=== PATIENT | male | born 1990 | race Caucasian/White ===

== ENCOUNTER 2017-04-30 11:18 | Emergency (ER) | payer BC, OTHER ==
[~2017-04-30] VITALS: Ht 170.2 cm; Wt 89.0 kg
[2017-04-30 11:23] VITALS: Ht 170.2 cm; Wt 89.0 kg
--- NOTE | 2017-04-30 13:14 | RADRPT ---
PROCEDURE: XR Left Shoulder CLINICAL INDICATION: Fall, can cannot raise arm times 3 weeks TECHNIQUE: AP internal and external rotation views and a Y-view were submitted. COMPARISON: None FINDINGS: Osseous structures: appear well mineralized and intact with no fracture or destructive process iden tified. Joint spaces: The glenohumeral joint appears unremarkable. The left AC joint appears unremarkable. Soft tissues: appear unremarkable. IMPRESSION: Unremarkable left shoulder. Physician Roni Date Time Electronically viewed and signed by Kirsty Pereira Physician on 04/30/2017 13:14 /
[2017-04-30] MEDS ORDERED: HYDR-906 PO (13:49)
[2017-04-30] MEDS ORDERED: IBUP-1542 PO (13:49)
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
== END 2017-04-30 14:05 | disposition home or self-care (01) ==
LOC: FTE 11:18
DX: S46.002A Unspecified injury of muscle(s) and tendon(s) of the rotator cuff of left shoulder, initial encounter (principal); V18.4XXA Pedal cycle driver injured in noncollision transport accident in traffic accident, initial encounter
CPT/HCPCS: 73030

== ENCOUNTER 2019-03-04 13:52 | Emergency (ER) | payer BC ==
[~2019-03-04] VITALS: Ht 167.6 cm; Wt 90.4 kg
[~2019-03-04 13:52] MED LIST: HYDR-4011 PO; IBUP-1542 PO
[2019-03-04 13:59] VITALS: BP 123/70; PULSE 64; RESP 18; Ht 167.6 cm; Wt 90.4 kg
--- NOTE | 2019-03-04 14:49 | ERD ---
ER Documentation Chief Complaint Chief Complaint dizzy shaking after taking meds: 1tab Sertraline 50mg w/gabapentin HPI 28-year-old male with past medical history of depression who present with complaints of dizziness and hand shaking since this morning. Patient took gabapentin and newly prescribed sertraline 50 mg this morning prior to symptoms. Has been on gabapentin for about 6 months now, recently started on sertraline for depression by psychiatrist. Symptoms have since resolved but patient presents to ED evaluation. He otherwise denies fevers, chills, chest pain, shortness of breath, dyspnea, nausea, vomiting, diarrhea, abdominal pain, urinary symptoms. He denies any suicidal homicidal ideation. At time of evaluation patient calm with a reassuring physical examination. ROS All systems reviewed and are negative except as per history of present illness. Medications Home Meds Active Scripts Hydrocodone/Acetaminophen ([place] 5-325 Tablet) 1 Each Tablet, 1 TAB PO Q6H PRN for PAIN, #15 TAB Prov:LEKKOS,APOSTOLOS A. DO 04/30/17 Ibuprofen* (Motrin*) 600 Mg Tab, 600 MG PO Q8, #30 TAB Prov:LEKKOS,APOSTOLOS A. DO 04/30/17 Allergies Allergies: Coded Allergies: No Known Allergy (Unverified , 04/30/17) PMhx/Soc History of Surgery: No Anesthesia Reaction: No Hx Neurological Disorder: No Hx Respiratory Disorders: No Hx Cardiac Disorders: No Hx Psychiatric Problems: No Hx Miscellaneous Medical Probl: No Hx Alcohol Use: No Hx Substance Use: No Hx Tobacco Use: No Smoking Status: Never smoker FmHx Family History: No diabetes, No coronary disease, No other Physical Exam Vitals Vital Signs Date Temp Pulse Resp B/P (MAP) Pulse Ox O2 O2 Flow FiO2 Time Delivery Rate 03/04/19 98.0 64 18 123/70 98 13:59 (87) Physical Exam Const: No acute distress Head: Atraumatic Eyes: Normal Conjunctiva ENT: Normal External Ears, Nose and Mouth. Neck: Full range of motion. No meningismus. Resp: Clear to auscultation bilaterally Cardio: Regular rate and rhythm, no murmurs Abd: Soft, non tender, non distended. Normal bowel sounds Skin: No petechiae or rashes Back: No midline or flank tenderness Ext: No cyanosis, or edema, no asterixis Neur: Awake and alert Psych: Normal Mood and Affect Procedures/MDM 28-year-old male presents with questionable adverse reaction from sertraline gabapentin medication. He has a reassuring physical examination with no extrap yramidal signs or symptoms. Patient advised to stop sertraline medication until he follows up with a psychiatrist. I have low suspicion for acute process warranting further emergent care or work-up. Patient likely to improve with cessation of medications. Strict return precautions explained in detail. Patient agrees to follow-up with his PMD and psychiatrist tomorrow. DISPOSITION PLAN: We discussed follow up with the patient's primary care doctor within 24 to 48 hours. Patient counseled regarding my diagnostic impression and care plan. Prior to discharge all questions answered. Pt agrees with treatment plan and understands strict return precautions. Precautionary instructions provided including instructions to return to the ER if not improving or for any worsening or changing symptoms or concerns. Disclaimer: Inadvertent spelling and grammatical errors are likely due to EHR/d ictation software use and do not reflect on the overall quality of patient care. Also, please note that the electronic time recorded on this note does not necessarily reflect the actual time of the patient encounter. Departure Diagnosis: Primary Impression: Medication adverse effect Additional Impressions: Medication active ingredient bioavailability increased due to ... Dizziness Condition: Stable Patient Instructions: Sertraline Hydrochloride Oral tablet Referrals: [facility] YOU HAVE RECEIVED A MEDICAL SCREENING EXAM AND THE RESULTS INDICATE THAT YOU DO NOT HAVE A CONDITION THAT REQUIRES URGENT TREATMENT IN THE EMERGENCY DEPARTMENT. FURTHER EVALUATION AND TREATMENT OF YOUR CONDITION CAN WAIT UNTIL YOU ARE SEEN IN YOUR DOCTORS OFFICE WITHIN THE NEXT 1-2 DAYS. IT IS YOUR RESPONSIBILITY TO MAKE AN APPOINTMENT FOR FOLOW-UP CARE. IF YOU HAVE A PRIMARY DOCTOR --you should call your primary doctor and schedule an appointment IF YOU DO NOT HAVE A PRIMARY DOCTOR YOU CAN CALL OUR PHYSICIAN REFERRAL HOTLINE AT IF YOU CAN NOT AFFORD TO SEE A PHYSICIAN YOU CAN CHOSE FROM THE FOLLOWING [facility] [address] [facility] [address] [facility] [address] [facility] [address] [facility]. [facility] [address] [facility]. [facility] [address] Additional Instructions: Call your primary care doctor TOMORROW for an appointment during the next 2-3 days.See the doctor sooner or return here if your condition worsens before your appointment time. You should not take sertraline medication until cleared by a psychiatrist. KEISHA NUNEZ PA-C Mar 04, 2019 14:49
== END 2019-03-04 17:41 | disposition home or self-care (01) ==
LOC: FTE 13:52
DX: R42 Dizziness and giddiness (principal); T42.6X5A Adverse effect of other antiepileptic and sedative-hypnotic drugs, initial encounter
CPT/HCPCS: 99282